=== PATIENT | male | born 1970 | race Caucasian/White ===

== ENCOUNTER → 2023-10-01 11:49 | Outpatient (REF) | payer MEDICARE, SELFPAY | LOC: RAD 11:49 | PROVIDERS: ATTENDING PHYSICIAN Family Medicine | DX: R07.9 Chest pain, unspecified (principal) | CPT/HCPCS: 71046 ==

== ENCOUNTER 2023-12-10 15:38 | Emergency (ER) | payer MEDICARE, SELFPAY ==
[2023-12-10 15:51] VITALS: BP 136/82
--- NOTE | 2023-12-10 17:38 | ED.PDOC.TRB ---
ED Provider Triage
<ANGELES Varela - Last Filed: 12/10/23 18:58>
-
Patient is a 53-year-old paraplegic who presents to the ER complaining of off-and-on left arm/ swelling to left neck/clavicle region for the past several months since September. He at that time saw his family doctor who ordered a CAT scan but he did not
have that done. He also has noted intermittent left lower extremity swelling. He is a smoker. He is not on blood thinners. He denies any shortness of breath. Will check ultrasound of left lower extremity . discussed with radiology will start
with ultrasound first of LUE to look at veins and rule out clot and then if negative will do a standard CT neck chest with IV contrast to look at soft tissues.
<Ellis Styles DO - Last Filed: 12/10/23 19:10>
-
Patient seen by provider in Triage?: Seen in Triage
[2023-12-10 18:09] LABS: % Basophils 1.5 % (0-2); % Eosinophils 1.4 % (0-6); % Immature Granulocytes 0.3 % (0-0.5); % Lymphocytes 15.6 % (20.5-51.1); % Monocytes 7.2 % (1.7-9.3); Absolute Basophils 0.1 10^3/uL (0-0.2); Absolute Eosinophils 0.1 10^3/uL (0-0.7); Absolute Lymphocytes 1.1 10^3/uL (1.2-3.4); Absolute Monocytes 0.5 10^3/uL (0.1-0.6); Absolute Neutrophils 5.3 10^3/uL (1.4-6.5); Hematocrit 46.5 % (39.0-52.0); Hemoglobin 16.1 g/dL (13.0-18.0); Mean Corp Hgb Conc. 34.6 g/dL (33.0-37.0); Mean Corpuscular Hgb 28.7 pg (27.0-31.0); Mean Corpuscular Volume 82.9 fL (80.0-94.0); Mean Platelet Volume 8.6 fL (7.4-10.4); Nucleated Red Blood Cells % 0 % (-); Platelet Count 294 10^3/uL (130-400); Red Blood Cell Count 5.61 10^6/uL (4.70-6.10); Red Cell Dist. Width 17.9 % (11.5-14.5); White Blood Cell Count 7.2 10^3/uL (4.8-10.8)
[2023-12-10 18:35] LABS: ALT (SGPT) 25 U/L (0-50); AST (SGOT) 23 U/L (17-59); Albumin 4.5 g/dl (3.5-5.0); Alkaline Phosphatase 81 U/L (38-126); Blood Urea Nitrogen 12 mg/dl (9-20); Calcium 9.7 mg/dl (8.4-10.2); Carbon Dioxide 26 mmol/L (22-30); Chloride 104 mmol/L (98-107); Glucose 100 mg/dl (70-99); Potassium 4.2 mmol/L (3.5-5.1); Sodium 137 mmol/L (135-145); Total Bilirubin 0.6 mg/dl (0.2-1.3); Total Protein 6.8 g/dl (6.3-8.2); eGFR > 60.00
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
[2023-12-10 20:25] VITALS: BP 113/89
== END 2023-12-10 20:45 | disposition home or self-care (01) ==
LOC: EMR 15:38
PROVIDERS: Nurse Practitioner; EMERGENCY PHYSICIAN Emergency Medicine; FAMILY PHYSICIAN Family Medicine
DX: R60.0 Localized edema (principal); M25.512 Pain in left shoulder; G82.20 Paraplegia, unspecified; N39.0 Urinary tract infection, site not specified; K21.9 Gastro-esophageal reflux disease without esophagitis; I10 Essential (primary) hypertension; F17.200 Nicotine dependence, unspecified, uncomplicated; Z87.442 Personal history of urinary calculi; Z87.440 Personal history of urinary (tract) infections; Z88.1 Allergy status to other antibiotic agents; Z88.2 Allergy status to sulfonamides
CPT/HCPCS: 99284; 71046; 80053; 85025; 93971

== ENCOUNTER → 2023-12-20 13:46 | Outpatient (REF) | payer MEDICARE, SELFPAY | LOC: RAD 13:46 | PROVIDERS: ATTENDING PHYSICIAN Family Medicine | DX: R07.89 Other chest pain (principal); Q67.8 Other congenital deformities of chest | CPT/HCPCS: 71260; Q9967 ==

== ENCOUNTER → 2024-01-16 13:00 | Outpatient (REF) | payer MEDICARE, SELFPAY | LOC: HWRAD 13:00 | PROVIDERS: ATTENDING PHYSICIAN Family Medicine | DX: E04.1 Nontoxic single thyroid nodule (principal) | CPT/HCPCS: 76536 ==

== ENCOUNTER → 2024-03-19 13:24 | Outpatient (REF) | payer MEDICARE, SELFPAY ==
[2024-03-19 13:38] VITALS: BP 140/85; BP_SYST 95
== END ==
LOC: RADI 13:24
PROVIDERS: ATTENDING PHYSICIAN Family Medicine
DX: E04.1 Nontoxic single thyroid nodule (principal)
CPT/HCPCS: 88173; 10005

== ENCOUNTER → 2024-07-09 13:34 | Outpatient (REF) | payer OTHER, SELFPAY ==
[2024-07-09 14:22] LABS: Hematocrit 42.9 % (39.0-52.0); Hemoglobin 13.8 g/dL (13.0-18.0); Mean Corp Hgb Conc. 32.2 g/dL (33.0-37.0); Mean Corpuscular Hgb 26.1 pg (27.0-31.0); Mean Corpuscular Volume 81.1 fL (80.0-94.0); Mean Platelet Volume 8.5 fL (7.4-10.4); Platelet Count 365 10^3/uL (130-400); Red Blood Cell Count 5.29 10^6/uL (4.70-6.10); Red Cell Dist. Width 14.3 % (11.5-14.5); White Blood Cell Count 7.2 10^3/uL (4.8-10.8)
[2024-07-09 14:41] LABS: APTT 30.6 Sec (23.4-35.0); INR 0.96; PT 13.3 Sec (11.4-14.6)
[2024-07-09 15:29] LABS: ALT (SGPT) 101 U/L (0-50); AST (SGOT) 41 U/L (17-59); Alkaline Phosphatase 112 U/L (38-126); Blood Urea Nitrogen 9 mg/dl (9-20); Calcium 9.4 mg/dl (8.4-10.2); Carbon Dioxide 27 mmol/L (22-30); Chloride 105 mmol/L (98-107); Glucose 100 mg/dl (70-99); Potassium 4.3 mmol/L (3.5-5.1); Sodium 138 mmol/L (135-145); Total Bilirubin 0.7 mg/dl (0.2-1.3); Total Protein 6.3 g/dl (6.3-8.2); eGFR > 60.00
== END ==
LOC: SDSPAT 13:34
PROVIDERS: ATTENDING PHYSICIAN Surgery; FAMILY PHYSICIAN Family Medicine
DX: E04.1 Nontoxic single thyroid nodule (principal)
CPT/HCPCS: 36415; 80053; 85027; 85610; 85730; 93005

== ENCOUNTER → 2024-07-16 13:56 | Outpatient (REF) | payer OTHER, SELFPAY | LOC: HWRAD 13:56 | PROVIDERS: ATTENDING PHYSICIAN Internal Medicine Endocrinology, Diabetes & Metabolism; FAMILY PHYSICIAN Family Medicine; REFERRING PHYSICIAN Surgery | DX: E04.1 Nontoxic single thyroid nodule (principal) | CPT/HCPCS: 76536 ==

== ENCOUNTER 2024-07-22 06:13 | Day surgery (SDC) | payer OTHER, SELFPAY ==
[2024-07-22] VITALS (11 sets, daily range): BP systolic 114–156; BP diastolic 70–108; BMI 25.3
[2024-07-22] MEDS: TYLENOL 1000 MG PO (12:12)
[2024-07-22] MEDS: NEURONTIN 300 MG PO (12:13)
[2024-07-22] MEDS: HEPARIN 5000 UNITS SC (12:13)
[2024-07-22] MEDS: NORMOSOL-R/PLASMALYTE-A 1000 IV (12:15)
--- NOTE | 2024-07-22 14:26 | OR.RPT ---
Operative Report
Operative Report
DATE OF OPERATION: July 22, 2024
PREOPERATIVE DIAGNOSIS: �Thyroid Nodule Single - E041
POSTOPERATIVE DIAGNOSIS: Same
SURGEON: Wilmar Henry M.D.
OPERATION: �Left Thyroidectomy & Limited Neck Dissection - 62703
ANESTHESIA: GET
ESTIMATED BLOOD LOSS: 10 cc
DRAINS: None
SPECIMEN: �Left thyroid lobe and isthmus and left level paratracheal tissue
FINDINGS: left thyroid nodule
COMPLICATIONS:� None
PROCEDURE:
The patient was taken to the operating room and placed in the usual supine position. After adequate general endotracheal anesthesia was established, the patient�s neck was extended, prepped, and draped in the typical sterile fashion. A 5 cm
transcervical incision was made two fingerbreadths above the sternal notch. The skin incision was made with the #15 blade, which was taken through the skin into the subcutaneous tissue. The underlying platysma muscle was divided, and subplatysmal
flaps were created superiorly to the thyroid cartilage and inferiorly to the sternal notch. Strap muscles were identified and at the midline.
Attention was turned to the patient�s left thyroid lobe. The left thyroid lobe was mobilized medially. During this process, the left middle thyroid vein and inferior thyroid artery were dissected and ligated with Ligasure. Next, the left superior
pole was taken down by dissecting and transecting the superior pole vessels with a Ligasure. The left thyroid lobe was mobilized medially. During this process, the left recurrent laryngeal nerve was identified and preserved throughout its entire
course. The left inferior parathyroid gland was identified and preserved. The left thyroid lobe with isthmus was resected off the trachea and sent to the pathology department.
At this time, the left level 6 paratracheal neck dissection was performed. The tissue between the left carotid artery to the trachea into the anterior mediastinum was carefully dissected. The previously identified recurrent laryngeal nerve and the
left inferior parathyroid gland was preserved. The tissue was removed and examined. One parathyroid gland was identified, which was minced and autotransplanted in the left SCM muscle. The left paratracheal tissue was sent to the pathology department.
After obtaining adequate hemostasis, the strap muscle was approximated with #3-0 Vicryl in a running fashion, and platysma muscles were reapproximated with #3-0 Vicryl in an interrupted fashion, and the skin was approximated with #4-0 Monocryl in a
running subcuticular fashion. Steri-strips and sterile dressings were placed. The patient tolerated the procedure well. The final instrument, needle, and sponge counts were correct.
[2024-07-22] MEDS: DILAUDID 0.5 MG IV (15:01)
[2024-07-22] MEDS: ROXICODONE 5 MG PO (16:18)
== END 2024-07-22 17:24 | disposition home or self-care (01) ==
LOC: SDS 06:13
PROVIDERS: ATTENDING PHYSICIAN Surgery; FAMILY PHYSICIAN Family Medicine
DX: C73 Malignant neoplasm of thyroid gland (principal); E04.1 Nontoxic single thyroid nodule
CPT/HCPCS: 60252; 88307; 88311; C1776

== ENCOUNTER → 2024-12-02 13:44 | Outpatient (REF) | payer SELFPAY | LOC: HWRAD 13:44 | PROVIDERS: ATTENDING PHYSICIAN Family Medicine | DX: F17.200 Nicotine dependence, unspecified, uncomplicated (principal); I10 Essential (primary) hypertension; E78.00 Pure hypercholesterolemia, unspecified | CPT/HCPCS: 75571 ==